=== PATIENT | female | born 1990 | race Caucasian/White ===

== ENCOUNTER → 2018-03-24 | Outpatient (CLI) | payer MEDICAID ==
[2018-03-24 17:25] LABS: HIV 1/2 Antibodies Non-Reactive; HIV-1p24 Antigen Non-Reactive
[2018-03-24 23:59] LABS: HEPATITIS B SURFACE ANTIGEN Negative (Negative); HEPATITIS C VIRUS ANTIBODY Negative (Negative)
[2018-03-25 00:52] LABS: RPR (VDRL) Negative (Negative)
== END ==
LOC: COL.LAB 16:47
PROVIDERS: Family Medicine
DX: Z11.3 Encounter for screening for infections with a predominantly sexual mode of transmission (principal)

== ENCOUNTER → 2018-10-10 | Outpatient (CLI) | payer MEDICAID | LOC: COL.RAD 12:45 | DX: M25.561 Pain in right knee (principal); M25.562 Pain in left knee ==